=== PATIENT | female | born 1995 | race Caucasian/White ===

== ENCOUNTER 2020-03-26 13:02 | Emergency (ER) | payer MEDICAID ==
[~2020-03-26] VITALS: Ht 162.6 cm; Wt 72.0 kg
[2020-03-26] MEDS ORDERED: MAGNESIUM/ALUMINUM HYDROXIDE/SIMETHICONE 30ML UDC PO STA (13:59)
[2020-03-26] MEDS ORDERED: SODIUM CHLORIDE 0.9% 1,000 ML IV ONE (13:59)
[2020-03-26] MEDS ORDERED: FAMOTIDINE 20MG/2ML VIAL IV STA (13:59)
[2020-03-26] MEDS ORDERED: VISCOUS LIDOCAINE 2% 15 ML UDC MM PRN (14:00)
[2020-03-26 14:21] LABS: BASOPHILS % 0.9 % (0.0-2.0); EOSINOPHILS % 0.9 % (0.0-5.0); HEMATOCRIT. 39.8 % (36.0-48.0); HEMOGLOBIN. 13.4 g/dL (12.0-16.0); LYMPHOCYTES % 18.4 % (20.0-50.0); MEAN CORPUSCULAR HEMOGLOBIN 29.7 pg (28.0-32.0); MEAN CORPUSCULAR VOLUME 88.2 fL (81.0-99.0); MEAN PLATELET VOLUME 9.7 fl (7.4-10.4); MONOCYTES % 4.5 % (2.0-8.0); NEUTROPHILS % 75.3 % (40.0-76.0); PLATELET 254 x1000/uL (130-400); RED BLOOD CELL COUNT 4.51 mill/uL (4.2-5.4); RED CELL DISTRIBUTION WIDTH 14.1 % (11.6-14.6)
[2020-03-26 14:26] LABS: CHLORIDE 108 mEq/L (98-107)
[2020-03-26] MEDS ORDERED: DIPHENHYDRAMINE 25MG CAPSULE PO NR (15:00)
[2020-03-26 15:21] VITALS: BP 100/46
== END 2020-03-26 16:46 | disposition home or self-care (01) ==
LOC: ER 13:02
DX: T78.40XA Allergy, unspecified, initial encounter (principal); X58.XXXA Exposure to other specified factors, initial encounter; R03.0 Elevated blood-pressure reading, without diagnosis of hypertension; J45.909 Unspecified asthma, uncomplicated
CPT/HCPCS: 36415; 71045; 80053; 83690; 85025; 96361; 96374; 99284; J3490; J7030; Q0163